=== PATIENT | female | born 1965 | race American Indian/Alaskan Native ===

== ENCOUNTER 2020-01-12 13:03 | Emergency (ER) | payer SELFPAY ==
[2020-01-12 13:35] VITALS: BP 184/94
--- NOTE | 2020-01-12 14:08 | Emergency Department Report ---
ED Upper Extremity Inj HPI - General Chief Complaint: Extremity Injury, Upper Stated Complaint: RT ARM PAIN Time Seen by Provider: 01/12/20 14:00 Source: patient Mode of arrival: Ambulatory Limitations: No Limitations - History of Present Illness Initial Comments: Patient is a 54-year-old female presents emergency room with complaints of right elbow pain that began on 12/21/2019. she states that she was walking down the steps and there was some debris on the stairs and she accidentally slipped and caught herself with her right arm. She states that since then she has had some discomfort in her right arm. She is fully able to move the arm. She denies any numbness or weakness. She denies ever injuring the past. She has a past medical history of hypertension and reports that her primary care doctor just started her on her blood pressure medication. She denies any allergies to medications. - Related Data Previous Rx's Medication Instructions Recorded Last Taken Type Naproxen [EC-Naproxen] 500 mg PO BID PRN #14 tablet. 01/12/20 Unknown Rx Allergies Allergy/AdvReac Type Severity Reaction Status Date / Time No Known Allergies Allergy Unverified 09/22/15 13:35 ED Review of Systems ROS: Stated complaint: RT ARM PAIN Other details as noted in HPI Comment: All other systems reviewed and negative ED Past Medical Hx - Past Medical History Previous Medical History?: Yes Hx Headaches / Migraines: Yes Additional medical history: heart murmur - Surgical History Past Surgical History?: No - Social History Smoking Status: Current Every Day Smoker Substance Use Type: Alcohol, Marijuana - Medications Home Medications: Home Medications Medication Instructions Recorded Confirmed Last Taken Type Naproxen [EC-Naproxen] 500 mg PO BID PRN #14 tablet. 01/12/20 Unknown Rx ED Physical Exam - General Limitations: No Limitations General appearance: alert, in no apparent distress - Head Head exam: Present: atraumatic, normocephalic - Eye Eye exam: Present: normal appearance - ENT ENT exam: Present: mucous membranes moist - Respiratory Respiratory exam: Absent: respiratory distress, accessory muscle use - Extremities Exam Extremities exam: Present: other (no bony ttp of the RUE, FROM of the RUE, no ecchymosis, no edema, no signs of effusion, mild ttp over the right brachioradialis muscle, neurovascularly intact) - Neurological Exam Neurological exam: Present: alert, oriented X3 - Psychiatric Psychiatric exam: Present: normal affect, normal mood - Skin Skin exam: Present: warm, dry, intact ED Course Vital Signs 01/12/20 13:34 Temperature 98.4 F Pulse Rate 83 Respiratory 20 Rate Blood Pressure 184/94 [Right] O2 Sat by Pulse 100 Oximetry ED Medical Decision Making - Medical Decision Making Patient is a 54-year-old female presents emergency room with complaints of right elbow pain that began on 12/21/2019. she states that she was walking down the steps and there was some debris on the stairs and she accidentally slipped and caught herself with her right arm. She states that since then she has had some discomfort in her right arm. She is fully able to move the arm. She denies any numbness or weakness. She denies ever injuring the past. She has a past medical history of hypertension and reports that her primary care doctor just started her on her blood pressure medication. She denies any allergies to medications. vss. on exam:no bony ttp of the RUE, FROM of the RUE, no ecchymosis, no edema, no signs of effusion, mild ttp over the right brachioradialis muscle, neurovascularly intact. She has no clinical signs of acute traumatic fracture or dislocation. She has full active range of motion and is moving the elbow without any difficulty. Symptoms appear most likely related to mild muscle strain versus tendinitis, no signs of joint laxity. pt given davide wrap by nurse and remained neurovascularly intact. pt will be referred to orthopedic for further evaluation. given prescription for naproxen. advised pt Please take medication as prescribed as needed. Please do not wear Davide bandage too tightly and do not wear at night while sleeping. May use ice pack, heating pad, rest, soak in Epsom salt. Follow-up with orthopedic doctor. Follow-up with a primary care doctor. Return to emergency room for any new or worsening symptoms. - Differential Diagnosis strain, sprain, fx, dislocation, tendonitis, contusion Critical care attestation.: If time is entered above; I have spent that time in minutes in the direct care of this critically ill patient, excluding procedure time. ED Disposition Clinical Impression: Right forearm pain Disposition: - TO HOME OR SELFCARE Is pt being admited?: No Does the pt Need Aspirin: No Condition: Stable Instructions: Tendinitis, Muscle Strain, [id number] Additional Instructions: Please take medication as prescribed as needed. Please do not wear Davide bandage too tightly and do not wear at night while sleeping. May use ice pack, heating pad, rest, soak in Epsom salt. Follow-up with orthopedic doctor. Follow-up with a primary care doctor. Return to emergency room for any new or worsening symptoms. Prescriptions: Naproxen [EC-Naproxen] 500 mg PO BID PRN #14 tablet.dr HEAD Reason: pain Referrals: your, primary care doctor [Other] - 2-3 Days SUMIT MARCIAL MD [Staff Physician] - 2-3 Days [facility] [Provider Group] - 2-3 Days Time of Disposition: 14:14 Print Language: CZECH
== END 2020-01-12 14:30 | disposition home or self-care (01) ==
LOC: ED 13:03
DX: M79.631 Pain in right forearm (principal); G43.909 Migraine, unspecified, not intractable, without status migrainosus; F17.200 Nicotine dependence, unspecified, uncomplicated; F12.10 Cannabis abuse, uncomplicated; Z79.899 Other long term (current) drug therapy
CPT/HCPCS: 99282